=== PATIENT | female | born 1955 | race African-American/Black ===

== ENCOUNTER 2017-01-18 13:10 | Outpatient (CLI) ==
[2014-11-14 18:13] VITALS: BMI 46.5
--- NOTE | 2017-01-19 02:32 | MRI ---
EXAM: MRI cervical spine without IV contrast. DATE: 18 January 2017. HISTORY: Numbness in the hand. Anesthesia of skin. TECHNIQUE: Sagittal and axial T1W and T2W sequences of the cervical spine along with sagittal IR an d coronal T2W sequences were obtained using 1.2 Patricia magnet. No IV contrast. COMPARISON: None. FINDINGS: There is no cervical scoliosis. A 2 mm anterior subluxation of C5 relative to C4 is note d. No acute c-spine fracture, osseous malignancy, or jumped facet is evident. Cervical vertebrae n ormal in height. Small anterior osteophytes and mild disc space narrowing are present at C5-6. The re also small osteophytes at C6-7 and C7-T1. Bone marrow signal is overall normal. Cervical and up per thoracic spinal cord reveals no syrinx, cord edema, myelomalacia, or neoplasm. Visible brainstem and cerebellum are normal. Pituitary gland is very small and flattened against th e floor of the sella, with CSF filling the majority of the pituitary fossa. No definitive thyroid, submandibular, or parotid gland neoplasm is detected. Trachea, larynx, and epiglottis are grossly n ormal. No neck mass, cervical lymphadenopathy, apical lung mass, pneumonia, or pleural effusion is demonstrated. Segmental analysis: C2-3: Normal. C3-4: Broad posterior disc bulge (1.2 mm AP x 7.4 mm transverse) does not contact the cord. Canal is 10.8 mm AP. Minor right foraminal narrowing is due to uncinate hypertrophy. C4-5: Minor anterior subluxation of C5 and broad posterior disc/osteophyte complex cause anterior c ord flattening. Canal is 7 mm AP. Mild bilateral foraminal narrowing is due to uncinate hypertroph y and minor left facet arthropathy. C5-6: Broad posterior disc/osteophyte complex (2.9 mm AP) does not contact the cord at rest; howeve r, cord is flattened anteriorly. Canal is 9.6 mm AP. Minor right foraminal narrowing is due to unc inate purging and minor right facet arthropathy. C6-7: Minimal posterior disc bulge (1.2 mm AP) does not contact the cord. Canal is 11.5 mm AP. Ea ch foramen is patent. C7-T1: Minor posterior disc bulge (1.2 mm AP) does not contact the cord. Canal is 11.5 mm AP. Eac h foramen is patent. T1-2: Minimal posterior disc bulge does not cause cord compression or central stenosis. Mild right foraminal narrowing is due to facet arthropathy. IMPRESSIONS: 1. C-spine minor spondylosis, minor facet arthropathy, and multilevel mild DDD. 2. Moderate/marked central canal stenosis at C4-5. Mild central stenosis at C5-6. 3. Mild cord flattening at C4-5 and C5-6. No syrinx or myelomalacia. 4. Multilevel minor/mild foraminal stenoses. 5. Very small pituitary - nearly empty sella.
== END 2017-01-18 13:11 | disposition home or self-care (01) ==
LOC: RAD 13:10
PROVIDERS: ATTEND Nurse Practitioner Family
DX: R20.0 Anesthesia of skin (principal)

== ENCOUNTER 2017-01-22 09:16 | Emergency (ER) ==
[2017-01-22 09:24] VITALS: BP 138/87; TEMP 98.1; BMI 37.1
--- NOTE | 2017-01-22 09:28 | ED.PDOC ---
General ED Provider: Dr. ADRIAN JOY JR Chief Complaint: Rash Stated Complaint: onset rash with sm area noted--recalls wearing necklace of costume jewelry this past week--only item that might be allergen--denies any other new item--rash now speading to neck area[ End ]5 days 98.1 80 20 96% 138/ 87 7/10 states necklace was gold and not new- disc may be due to underlying metal- watch jewelry Time Seen by Physician: 09:27 Mode of Arrival: Walk-In Information Source: Patient Exam Limitations: No limitations Primary Care Provider: ESTELLA DURAN Nursing and Triage Documentation Reviewed and Agree: No Review of Systems - Review Of Systems Constitutional: Reports: No symptoms Eyes: Reports: No symptoms Ears, Nose, Mouth, Throat: Reports: No symptoms Respiratory: Reports: No symptoms Cardiac: Reports: No symptoms GI: Reports: No symptoms : Reports: No symptoms Musculoskeletal: Reports: No symptoms Skin: Reports: Lesions (open draining crusted area) Neurological: Reports: No symptoms Endocrine: Reports: No symptoms Hematologic/Lymphatic: Reports: No symptoms All Other Systems: Other Past Medical History - Past Medical History Previously Healthy: Yes Endocrine: Reports: None Cardiovascular: Reports: Hypertension, CHF Respiratory: Reports: None Hematological: Reports: None Gastrointestinal: Reports: None Genitourinary: Reports: None Neuro/Psych: Reports: None Musculoskeletal: Reports: None Cancer: Reports: None Last Menstrual Period: hysterectomy - Surgical History General Surgical History: Reports: Hysterectomy, Orthopedic (KNEE CAP) - Family History Family History: Reports: Unknown - Social History Smoking Status: Never smoker Hx Substance Use: Yes (MARIJUANA) Alcohol Screening: Occasionally Physical Exam - Physical Exam Appearance: Well-appearing, Obese Pain Distress: Moderate Skin: Warm, Dry, Normal color (note open lesion) Neurological: Sensation intact, Motor intact, Reflexes intact, Cranial nerves intact, Alert, Oriented Psychiatric: Affect appropriate, Mood appropriate Critical Care Note - Critical Care Note Total Time (mins): 0 Course - Course Orders, Labs, Meds: Orders Category Date Time Status Methylprednisolone Sod Succ/Pf [Solu-Medrol 125 mg] MEDS 01/22/17 09:48 Stat 125 mg IM ONCE STA Medications Discontinued Medications Generic Name Dose Route Start Last Admin Trade Name Freq PRN Reason Stop Dose Admin Methylprednisolone Sodium Succinate 125 mg 01/22/17 09:48 Solu-Medrol 125 Mg IM 01/22/17 09:49 ONCE STA Vital Signs: Temp Pulse Resp BP Pulse Ox 01/22/17 09:17 98.1 F 80 20 138/87 96 Departure - Departure Time of Disposition: 09:45 Disposition: HOME SELF-CARE Discharge Problem: Contact dermatitis and eczema, Impetigo Instructions: Impetigo (ED), Contact Dermatitis (ED) Condition: Good Pt referred to PMD for follow-up: Yes Additional Instructions: avoid sweets with injection may use desitin or vaseline after washing wiht soap and water- avoid triple antibiotic until healed would not wear same jewelry for 3 week then may challenge if desired Prescriptions: Cephalexin [Keflex] 500 mg PO QID #40 capsule Allergies/Adverse Reactions: Allergies No Known Allergies Allergy (Verified 01/22/17 09:25) Home Medications: Ambulatory Orders Aspirin [Aspirin Chewable] 81 mg PO DAILYWM 11/14/14 Docusate Sodium [Stool Softener] 100 mg PO DAILY 11/14/14 Furosemide 20 mg PO DAILY 11/14/14 Lisinopril/Hydrochlorothiazide [Lisinopril-Hctz 20-25 mg Tab] 0.5 tab PO DAILY 11/14/14 Metformin HCl [Glucophage] 500 mg PO BIDWM 11/14/14 Potassium Chloride [K-Dur] 20 meq PO DAILY 11/14/14 Cephalexin [Keflex] 500 mg PO QID #40 capsule 01/22/17
[2017-01-22] MEDS: SOLU-MEDROL 125 MG IM STA (09:58)
== END 2017-01-22 10:15 | disposition home or self-care (01) ==
LOC: ED 09:16
DX: L25.9 Unspecified contact dermatitis, unspecified cause (principal); L01.00 Impetigo, unspecified
CPT/HCPCS: 96372; 99282

== ENCOUNTER 2017-12-22 09:57 | Emergency (ER) | payer OTHER ==
[2017-12-22 10:07] VITALS: BP 128/70; TEMP 97.8; BMI 37.8
[2017-12-22] MEDS ORDERED: PREDNISONE PO STA (10:16)
--- NOTE | 2017-12-22 15:05 | ED.PDOC ---
General ED Provider: Dr. DARIN VALDEZ Chief Complaint: Non-specific Complaint Stated Complaint: edema of lips / hands Time Seen by Physician: 10:00 (see photos nurse present at all times ) Mode of Arrival: Walk-In Information Source: Patient Exam Limitations: No limitations Primary Care Provider: ESTELLA DURAN Nursing and Triage Documentation Reviewed and Agree: Yes Does patient meet sepsis criteria?: Yes If yes, has appropriate treatment been initiated?: No System Inflammatory Response Syndrome: Not Applicable Sepsis Protocol: For patient's 13 years and over: Temp is 96.8 and below OR 101 and greater Pulse >90 BPM Resp >20/minute Acutely Altered Mental Status Are patient's symptoms suggestive of a new infection, such as: -Pneumonia -Skin, Soft Tissue -Endocarditis -UTI -Bone, Joint Infection -Implantable Device -Acute Abdominal Infection -Wound Infection -Meningitis -Blood Stream Catheter Infection -Unknown EENT Complaint Exam - Dental/Oral Complaint/Exam Mechanism of Injury: No known trauma Onset/Duration: today Symptoms Are: Still present (took benadryl P.T.A) Initial Severity: Mild Current Severity: Mild Aggravating: Reports: None Alleviating: Reports: None Associated Signs and Symptoms: Reports: Swelling (SEE PHOTOS). Denies: Discharge, Fever, Foul odor, Foul taste in mouth Cardiac Risk Factors: Reports: Hypertension Dental/Oral Surgical History: Reports: None Facial Swelling Present: Yes (LIPS SEE PHOTOS ) Bleeding Present: No Oropharynx Findings: Absent: Clots, Active bleeding Septal Hematoma: No Foreign Body Present: No Dysphagia Present: No Drooling Present: No Asymmetrical Tonsillar Swelling Present: No Uvula Midline: Yes Mary-tonsillar Fluctuence: No Palatal Petechiae Present: No Scarlatinaform Rash Present: No Differential Diagnoses: Other (ANGIOEDEMA) Review of Systems - Review Of Systems Constitutional: Reports: No symptoms Eyes: Reports: No symptoms Ears, Nose, Mouth, Throat: Reports: No symptoms (EXECPT LIPS EDEMA) Respiratory: Reports: No symptoms Cardiac: Reports: No symptoms GI: Reports: No symptoms : Reports: No symptoms Musculoskeletal: Reports: No symptoms Skin: Reports: No symptoms Neurological: Reports: No symptoms Endocrine: Reports: No symptoms Hematologic/Lymphatic: Reports: No symptoms All Other Systems: Reviewed and Negative Past Medical History - Past Medical History Previously Healthy: Yes Endocrine: Reports: None Cardiovascular: Reports: Hypertension, CHF Respiratory: Reports: None Hematological: Reports: None Gastrointestinal: Reports: None Genitourinary: Reports: None Neuro/Psych: Reports: None Musculoskeletal: Reports: None Cancer: Reports: None Last Menstrual Period: unknown - Surgical History General Surgical History: Reports: Hysterectomy, Orthopedic (KNEE CAP) - Family History Family History: Reports: Unknown - Social History Smoking Status: Never smoker Hx Substance Use: Yes (MARIJUANA) Alcohol Screening: Occasionally Physical Exam - Physical Exam Appearance: Well-appearing, No pain distress, Well-nourished Eyes: EDY, EOMI, Conjunctiva clear ENT: Nose normal (LIP EDEMA SEE PHOTOS) Respiratory: Airway patent, Breath sounds clear, Breath sounds equal, Respirations nonlabored Cardiovascular: RRR, Pulses normal, No rub, No murmur GI/: Soft, Nontender, No masses, Bowel sounds normal, No Organomegaly Musculoskeletal: Normal strength, ROM intact, No edema, No calf tenderness Skin: Warm, Dry, Normal color Neurological: Sensation intact, Motor intact, Reflexes intact, Cranial nerves intact, Alert, Oriented Psychiatric: Affect appropriate, Mood appropriate Critical Care Note - Critical Care Note Total Time (mins): 0 Course - Course Hematology/Chemistry: 12/22/17 10:25 12/22/17 10:25 Orders, Labs, Meds: Lab Review 12/22/17 12/22/17 10:25 10:25 WBC 3.99 L RBC 4.19 L Hgb 11.8 L Hct 34.3 L MCV 81.9 MCH 28.2 MCHC 34.4 RDW Coeff of Denise 14.7 Plt Count 232 Immature Gran % (Auto) 0.3 Neut % (Auto) 51.0 Lymph % (Auto) 34.6 Cannon % (Auto) 5.8 Eos % (Auto) 7.5 H Baso % (Auto) 0.8 Immature Gran # (Auto) 0.0 Neut # (Auto) 2.0 Lymph # (Auto) 1.4 Cannon # (Auto) 0.2 L Eos # (Auto) 0.3 Baso # (Auto) 0.0 Sodium 140 Potassium 4.1 Chloride 107 Carbon Dioxide 24 Anion Gap 13.1 BUN 12 Creatinine 0.88 Estimated GFR (MDRD) 79.00 BUN/Creatinine Ratio 13.63 Glucose 94 Calcium 9.5 Total Bilirubin 0.9 AST 16 ALT 12 Alkaline Phosphatase 73 Total Protein 7.2 Albumin 3.5 Globulin 3.7 Albumin/Globulin Ratio 0.95 Orders Category Date Time Status CBC W/ AUTO DIFF Stat LAB 12/22/17 10:25 Completed COMPREHENSIVE METABOLIC PANEL Stat LAB 12/22/17 10:25 Completed Prednisone MEDS 12/22/17 10:16 Discontinued 40 mg PO ONCE STA Medications Discontinued Medications Generic Name Dose Route Start Last Admin Trade Name Ruby PRN Reason Stop Dose Admin Prednisone 40 mg 12/22/17 10:16 12/22/17 10:31 Prednisone PO 12/22/17 10:17 40 mg ONCE STA Administration Vital Signs: Temp Pulse Resp BP Pulse Ox 12/22/17 09:58 97.8 F 78 20 128/70 98 Departure - Departure Time of Disposition: 15:05 Disposition: HOME SELF-CARE Discharge Problem: Angio-edema Qualifiers: Encounter type: initial encounter Qualified Code(s): T78.3XXA - Angioneurotic edema, initial encounter Instructions: Angioedema (ED) Condition: Good Pt referred to PMD for follow-up: Yes IPMP verified?: No Additional Instructions: Please call your Family Physician as soon as possible to schedule a follow-up appointment. Allergies/Adverse Reactions: Allergies No Known Allergies Allergy (Verified 12/22/17 10:08) Home Medications: Ambulatory Orders Aspirin [Aspirin Chewable] 81 mg PO DAILYWM 11/14/14 Furosemide 20 mg PO DAILY 11/14/14 Lisinopril/Hydrochlorothiazide [Lisinopril-Hctz 20-25 mg Tab] 0.5 tab PO DAILY 11/14/14 Potassium Chloride [K-Dur] 20 meq PO DAILY 11/14/14 Calcium Carb/D3/Magnesium/Zinc [Rufino Mag Zinc + D Tablet] 2 each PO DAILY
== END 2017-12-22 15:15 | disposition home or self-care (01) ==
LOC: ED 09:57
DX: T78.3XXA Angioneurotic edema, initial encounter (principal); I10 Essential (primary) hypertension
CPT/HCPCS: 36415; 80053; 85025; 99283